=== PATIENT | female | born 1930 | race Caucasian/White ===

== ENCOUNTER 2016-05-15 18:43 | Emergency (ER) | payer MEDICARE, OTHER ==
[~2016-05-15] VITALS: Ht 160 cm; Wt 68.0 kg
[2016-05-15 18:45] VITALS: BP 116/57
[2016-05-15] MEDS ORDERED: IBUPROFEN 600 MG TAB PO ONE (20:30)
== END 2016-05-15 20:59 | disposition home or self-care (01) ==
LOC: ER 18:54
DX: S20.212A Contusion of left front wall of thorax, initial encounter (principal); W19.XXXA Unspecified fall, initial encounter; Y93.89 Activity, other specified; Y99.8 Other external cause status; Y92.89 Other specified places as the place of occurrence of the external cause
CPT/HCPCS: 71101